=== PATIENT | female | born 1945 | race Caucasian/White ===

== ENCOUNTER → 2020-06-06 11:09 | Outpatient (BNVA) | payer BC, SELFPAY | PROVIDERS: PCP Internal Medicine Endocrinology, Diabetes & Metabolism; Visit Provider Internal Medicine Pulmonary Disease | DX: Z76.89 Persons encountering health services in other specified circumstances (principal) ==

== ENCOUNTER → 2020-09-11 12:38 | Outpatient (BNVA) | payer BC, SELFPAY | PROVIDERS: PCP Internal Medicine Endocrinology, Diabetes & Metabolism; Visit Provider Internal Medicine Pulmonary Disease ==

== ENCOUNTER → 2021-03-07 12:57 | Outpatient (BNVA) | payer BC, SELFPAY | PROVIDERS: PCP Internal Medicine Endocrinology, Diabetes & Metabolism; Visit Provider Internal Medicine Pulmonary Disease ==

== ENCOUNTER → 2021-09-24 12:50 | Outpatient (BNVA) | payer BC, SELFPAY | PROVIDERS: PCP Internal Medicine Endocrinology, Diabetes & Metabolism; Visit Provider Internal Medicine Pulmonary Disease | DX: Z13.89 Encounter for screening for other disorder (principal) ==

== ENCOUNTER → 2022-09-24 13:28 | Outpatient (BNVA) | payer MEDICARE, SELFPAY | PROVIDERS: PCP Internal Medicine Endocrinology, Diabetes & Metabolism; Visit Provider Internal Medicine Pulmonary Disease | DX: J44.9 Chronic obstructive pulmonary disease, unspecified (principal); R06.00 Dyspnea, unspecified; R91.8 Other nonspecific abnormal finding of lung field | CPT/HCPCS: 99212 ==

== ENCOUNTER → 2022-10-16 13:45 | Outpatient (BNVA) | payer MEDICARE, SELFPAY | PROVIDERS: PCP Internal Medicine Endocrinology, Diabetes & Metabolism; Visit Provider Internal Medicine Pulmonary Disease | DX: J44.9 Chronic obstructive pulmonary disease, unspecified (principal); R06.02 Shortness of breath; R91.8 Other nonspecific abnormal finding of lung field | CPT/HCPCS: 99212 ==

== ENCOUNTER → 2022-10-28 13:44 | Outpatient (BNVA) | payer MEDICARE, SELFPAY | PROVIDERS: PCP Internal Medicine Endocrinology, Diabetes & Metabolism; Visit Provider Internal Medicine Pulmonary Disease | DX: J44.9 Chronic obstructive pulmonary disease, unspecified (principal); R06.00 Dyspnea, unspecified; R91.8 Other nonspecific abnormal finding of lung field | CPT/HCPCS: Q3014 ==

== ENCOUNTER 2022-12-31 12:46 | Outpatient (REF) | payer MEDICARE, SELFPAY ==
--- NOTE | ~2022-12-31 | CT_ITS ---
EXAMINATION: CT CHEST WITHOUT CONTRAST CLINICAL INFORMATION: Other nonspecific abnormal finding of lung field COMPARISON: None available. TECHNIQUE: Multidetector volumetric CT imaging of the chest was done. Axial MIP volume rendering provided. Sagittal and coronal reformatted images were obtained. This CT examination was performed using dose optimization techniques as appropriate, variously including the following: *Automated exposure control *Adjustment of mA and/or kV according to patient size (this includes techniques or standardized protocols for targeted exams where dose is matched to indication/reason for exam; i.e. extremities or head) *Use of iterative reconstruction technique DLP: 137 mGy-cm FINDINGS: HEM MARKER: Unremarkable LUNGS: There are innumerable small pulmonary nodules. Largest pulmonary nodule measures 5 mm in the right lower lobe axial image 171 series 7. There are also scattered areas of bronchial wall thickening and bronchiectasis. There is a atelectasis or small infiltrate in the inferior lingula. MEDIASTINUM: Small mediastinal lymph nodes. No enlarged hilar or mediastinal lymph nodes. Normal heart size. No pericardial effusion. CORONARY ARTERY CALCIFICATION: Mild PLEURA: There is no pleural effusion. No pleural mass or thickening. AXILLA: 3.3 x 3.5 cm left breast mass. UPPER ABDOMEN: Left upper quadrant splenules. Low-attenuation 1 cm left adrenal lesion probably representing a benign lipid rich adenoma. Hounsfield units measure -8. Multiple renal cysts. No imaging follow-up recommended. Cholecystectomy. OSSEOUS STRUCTURES: Degenerative changes of the spine. CT/CT chest wo IV con IMPRESSION: 3 x 5 cm left breast mass. Correlation with physical exam, and mammogram recommended. Innumerable small pulmonary nodules, largest a 5 mm right lower lobe. Scattered areas of mild bronchiectasis and bronchial wall thickening. Infectious, inflammatory and neoplastic processes should be considered. Fleischner guidelines were followed.
== END 2022-12-31 12:47 | disposition home or self-care (01) ==
LOC: HO.CT 12:46
PROVIDERS: PCP Internal Medicine Endocrinology, Diabetes & Metabolism; Visit Provider Internal Medicine Pulmonary Disease
DX: R91.8 Other nonspecific abnormal finding of lung field (principal)
CPT/HCPCS: 71250

== ENCOUNTER 2023-04-24 13:47 | Outpatient (AMB) | payer MEDICARE, SELFPAY ==
[2023-04-24 13:51] VITALS: BP 102/58; PULSE 73; O2SAT 95; BMI 36.4
--- NOTE | 2023-04-24 13:51 | MHC.OFFVIS ---
Intake Vital Signs 04/24/23 13:51 Height 5 ft Weight 186 lb 4.65 oz BMI 36.4 BP 102/58 L Blood Pressure Location Rt brachial Position Sitting Pulse 73 Pulse Source Doppler Pulse Oximetry (%) 95 Oxygen Delivery Method Room Air Intake Visit Reasons: asthma Allergies acetaminophen [Percocet] Allergy (Unknown, Verified 04/24/23 13:53) Unknown oxycodone [Percocet] Allergy (Unknown, Verified 04/24/23 13:53) Unknown penicillin V Allergy (Unknown, Verified 04/24/23 13:53) Unknown Sulfa (Sulfonamide Antibiotics) Allergy (Verified 04/24/23 13:53) Hives HPI asthma HPI Details 78-year-old lady, former 15 pack-year smoker, quit 1994, followed for underlying asthma/COPD overlap syndrome and dyspnea on exertion. She has been using Trelegy and albuterol MDI previously with reasonable control of her symptoms. Unfortunately she recently been diagnosed her breast cancer. Patient continues to complain of slowly worsening dyspnea on exertion and lower extremity edema. Today she has had 2D echocardiogram at her bone puller office with results not available at this time. [facility] Medical History (Updated 04/24/23 @ 13:34 by Jasmina Colon PA-C) Asthma-COPD overlap syndrome Paroxysmal nocturnal dyspnea Pulmonary nodules CKD (chronic kidney disease) Hypertension Hyperlipidemia GERD (gastroesophageal reflux disease) Surgical History (Updated 04/24/23 @ 13:30 by Jasmina Colon PA-C) History of cholecystectomy (~1994) 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) History of partial colectomy (~2016) History of colostomy reversal (~2017) Social History Patient Tobacco Use Status: Former Tobacco user Quit Date: 1994 Years Smoked: 15 pack-year smoker, quit 1994 Current occupational status: retired Current occupation: retired - former hairdresser Review of Systems Const Denies daytime sleepiness, Denies excessive sweating, Denies fatigue, Denies fever(s), Denies lethargy, Denies malaise, Denies night sweats, Denies snoring and Denies weight loss Eyes Denies blurry vision and Denies itchy eyes ENT Denies nasal congestion, Denies post nasal drip, Denies sinus pain, Denies sinus pressure and Denies other ( Thrush) Card Denies chest pain, Reports pedal edema, Reports leg edema, Denies dyspnea, Reports dyspnea on exertion, Denies orthopnea and Denies paroxysmal nocturnal dyspnea Resp Denies cough, Denies hemoptysis, Denies excessive phlegm production, Denies dyspnea, Reports dyspnea on exertion, Denies snoring and Denies wheezing GI Denies abdominal pain and Denies heartburn Musc Denies myalgias, Denies arthralgias and Denies joint swelling Skin/Breast Denies rash Neuro Denies memory loss and Denies seizure-like activity Psych Denies abnormal sleep pattern, Denies anxiety and Denies memory loss Endo Denies excessive sweating, Denies fatigue and Denies heat intolerance Arsenio/Lymph Denies easy bruising Aller/Immun Denies itchy eyes, Denies seasonal rhinorrhea and Denies wheezing Physical Exam Vital Signs: Last Vital Signs Pulse 73 04/24/23 13:51 BP 102/58 L 04/24/23 13:51 Pulse Ox 95 04/24/23 13:51 Oxygen Delivery Method Room Air 04/24/23 13:51 BMI result Body Mass Index 36.4 Const General: no acute distress and alert Nutritional Appearance: not obese Orientation/consciousness: Other orientation findings ( oriented) HEENT Head: Yes atraumatic Eyes General: appearance normal, both eyes and all related structures Sclerae: sclerae normal EOM: EOMs intact bilaterally Neck Neck: Yes supple Lymphatic: no lymphadenopathy noted Resp Effort & Inspection: normal respiratory effort and no use of accessory muscles Auscultation: clear to auscultation bilaterally Cardio Rate: regular rate Rhythm: regular rhythm Heart sounds: no gallops, no murmurs and no rubs Skin General skin exam: other ( warm) Extrem General: No clubbing, No cyanosis and Yes edema (2+ bilateral) Assessment & Plan Assessment & Plan (1) Asthma-COPD overlap syndrome: Code(s): J44.9 - Chronic obstructive pulmonary disease, unspecified Plan: Controlled on the current regimen of Trelegy and albuterol MDI. Continue current regimen. (2) Dyspnea on exertion: Code(s): R06.00 - Dyspnea, unspecified Plan: Unclear etiology. May have significant cardiac component. Pulmonary component controlled current regimen. In office supplemental oxygen/6 minute walk test performed. Patient does not require supplemental oxygen to maintain normal oximetry with exertion. Coding Level of Care Code Est Pt Level 4 (34048) Diagnoses Asthma-COPD overlap syndrome J44.9 Dyspnea on exertion R06.00
[2023-04-26 13:13] VITALS: PULSE 92; O2SAT 93
== END 2023-04-24 14:33 | disposition home or self-care (01) ==
PROVIDERS: PCP Internal Medicine Endocrinology, Diabetes & Metabolism; Visit Provider Internal Medicine Pulmonary Disease
DX: J44.9 Chronic obstructive pulmonary disease, unspecified (principal)
CPT/HCPCS: 94618; 99214

== ENCOUNTER → 2023-04-24 13:47 | Outpatient (BNVA) | payer MEDICARE, SELFPAY | PROVIDERS: PCP Internal Medicine Endocrinology, Diabetes & Metabolism; Visit Provider Internal Medicine Pulmonary Disease | DX: J44.9 Chronic obstructive pulmonary disease, unspecified (principal); R06.00 Dyspnea, unspecified | CPT/HCPCS: 94618; 99212 ==

== ENCOUNTER 2023-05-06 14:22 | Outpatient (AMB) | payer MEDICARE, SELFPAY ==
[2023-05-06 14:27] VITALS: BP 120/62; PULSE 70; O2SAT 95; BMI 34.6
--- NOTE | 2023-05-06 14:27 | A.OFFVIS_ITS ---
Intake Vital Signs 05/06/23 14:27 Height 5 ft Weight 177 lb BMI 34.6 BP 120/62 Blood Pressure Location Rt brachial Position Sitting Pulse 70 Pulse Source Doppler Pulse Oximetry (%) 95 Oxygen Delivery Method Room Air Intake Visit Reasons: increased shortness of breath Allergies acetaminophen [Percocet] Allergy (Unknown, Verified 05/06/23 14:33) Unknown oxycodone [Percocet] Allergy (Unknown, Verified 05/06/23 14:33) Unknown penicillin V Allergy (Unknown, Verified 05/06/23 14:33) Unknown Sulfa (Sulfonamide Antibiotics) Allergy (Verified 05/06/23 14:33) Hives HPI increased shortness of breath HPI Details 78-year-old lady, former 15 pack-year sm oker, quit 1994, followed for underlying asthma/COPD overlap syndrome and dyspnea on exertion. She has been using Trelegy and albuterol MDI previously with reasonable control of her symptoms. Unfortunately she recently been diagnosed her breast cancer. Patient continues to complain of slowly worsening dyspnea on exertion and lower extremity edema. She has been observed at [facility] for 18 hours about 1 week prior to this appointment for ?pneumonia and is finishing antibiotic regimen at this time. Patient's bumetanide also has been decreased to once a day by her primary care provider. She continues to complain of dyspnea on exertion and she has at least 1+ lower extremity edema. Patient is scheduled to undergo cardiac stress testing. [facility] Medical History (Updated 04/24/23 @ 13:34 by Jasmina Colon PA-C) Asthma-COPD overlap syndrome Paroxysmal nocturnal dyspnea Pulmonary nodules CKD (chronic kidney disease) Hypertension Hyperlipidemia GERD (gastroesophageal reflux disease) Surgical History (Updated 04/24/23 @ 13:30 by Jasmnia Colon PA-C) History of cholecystectomy (~1994) 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) History of partial colectomy (~2016) History of colostomy reversal (~2017) Social History Patient Tobacco Use Status: Former Tobacco user Quit Date: 1994 Years Smoked: 15 pack-year smoker, quit 1994 Current occupational status: retired Current occupation: retired - former hairdresser Review of Systems Const Denies daytime sleepiness, Denies excessive sweating, Denies fatigue, Denies fever(s), Denies lethargy, Denies malaise, Denies night sweats, Denies snoring and Denies weight loss Eyes Denies blurry vision and Denies itchy eyes ENT Denies nasal congestion, Denies post nasal drip, Denies sinus pain, Denies sinus pressure and Denies other ( Thrush) Card Denies chest pain, Reports pedal edema, Denies dyspnea, Reports dyspnea on exertion, Denies orthopnea and Denies paroxysmal nocturnal dyspnea Resp Denies cough, Denies hemoptysis, Denies excessive phlegm production, Denies dyspnea, Reports dyspnea on exertion, Denies snoring and Denies wheezing GI Denies abdominal pain and Denies heartburn Musc Denies myalgias, Denies arthralgias and Denies joint swelling Skin/Breast Denies rash Neuro Denies memory loss and Denies seizure-like activity Psych Denies abnormal sleep pattern, Denies anxiety and Denies memory loss Endo Denies excessive sweating, Denies fatigue and Denies heat intolerance Arsenio/Lymph Denies easy bruising Aller/Immun Denies itchy eyes, Denies seasonal rhinorrhea and Denies wheezing Physical Exam Vital Signs: Last Vital Signs Pulse 70 05/06/23 14:27 BP 120/62 05/06/23 14:27 Pulse Ox 95 05/06/23 14:27 Oxygen Delivery Method Room Air 05/06/23 14:27 BMI result Body Mass Index 34.6 Const General: no acute distress and alert Nutritional Appearance: not obese Orientation/consciousness: Other orientation findings ( oriented) HEENT Head: Yes atraumatic Eyes General: appearance normal, both eyes and all related structures Sclerae: sclerae normal EOM: EOMs intact bilaterally Neck Neck: Yes supple Lymphatic: no lymphadenopathy noted Resp Effort & Inspection: normal respiratory effort and no use of accessory muscles Auscultation: clear to auscultation bilaterally Cardio Rate: regular rate Rhythm: regular rhythm Heart sounds: no gallops, no murmurs and no rubs Skin General skin exam: other ( warm) Extrem General: No clubbing, No cyanosis and No edema Assessment & Plan Assessment & Plan (1) Asthma-COPD overlap syndrome: Code(s): J44.9 - Chronic obstructive pulmonary disease, unspecified Plan: Controlled on Trelegy and albuterol MDI. Continue current regimen. (2) Dyspnea on exertion: Code(s): R06.00 - Dyspnea, unspecified Plan: Unclear complete etiology. It appears it pulmonary component is controlled. Suspect cardiac component at this time. Patient is to undergo stress testing, if not informative, will consider cardiopulmonary exercise testing. Coding Level of Care Code Est Pt Level 4 (77938) Diagnoses Asthma-COPD overlap syndrome J44.9 Dyspnea on exertion R06.00
== END 2023-05-06 14:57 | disposition home or self-care (01) ==
PROVIDERS: PCP Internal Medicine Endocrinology, Diabetes & Metabolism; Visit Provider Internal Medicine Pulmonary Disease
DX: J44.9 Chronic obstructive pulmonary disease, unspecified (principal); R06.00 Dyspnea, unspecified
CPT/HCPCS: 99214

== ENCOUNTER → 2023-05-06 14:22 | Outpatient (BNVA) | payer MEDICARE, SELFPAY | PROVIDERS: PCP Internal Medicine Endocrinology, Diabetes & Metabolism; Visit Provider Internal Medicine Pulmonary Disease | DX: J44.9 Chronic obstructive pulmonary disease, unspecified (principal); R06.00 Dyspnea, unspecified | CPT/HCPCS: 99212 ==

== ENCOUNTER 2023-07-10 13:20 | Outpatient (AMB) | payer MEDICARE, SELFPAY ==
[2023-07-10 13:40] VITALS: BP 100/58; PULSE 76; O2SAT 94
--- NOTE | 2023-07-10 13:40 | MHC.OFFVIS ---
Intake Vital Signs 07/10/23 13:40 Weight 181 lb 14.102 oz BP 100/58 L Blood Pressure Location Lt brachial Position Sitting Pulse 76 Pulse Source Pulse Oximeter Pulse Oximetry (%) 94 Oxygen Delivery Method Room Air Intake Visit Reasons: 6 min walk Allergies acetaminophen [Percocet] Allergy (Unknown, Verified 07/10/23 13:41) Unknown oxycodone [Percocet] Allergy (Unknown, Verified 07/10/23 13:41) Unknown penicillin V Allergy (Unknown, Verified 07/10/23 13:41) Unknown Sulfa (Sulfonamide Antibiotics) Allergy (Verified 07/10/23 13:41) Hives Medication List - Last Reconciled 07/10/23 by Michaela Dash LPN albuterol sulfate 90 mcg/actuation 2 puffs inhalation QID bumetanide 1.5 mg (3 x 0.5 mg) PO BID 30 days carvedilol 12.5 mg PO BID celecoxib 200 mg PO DAILY chlorhexidine gluconate 0.12% 1 mL PO BID clindamycin HCl 600 mg PO isosorbide mononitrate ER 60 mg PO DAILY loperamide mg PO omeprazole mg PO DAILY ropinirole 0.25 mg PO BID rosuvastatin 20 mg PO BEDTIME Trelegy Ellipta 200-62.5-25 mcg ([id number]) 1 ea inhalation DAILY NS ursodiol 500 mg PO BID zolpidem 5 mg PO BEDTIME PRN zolpidem mg PO BEDTIME PRN PFSH Medical History (Updated 04/24/23 @ 13:34 by Jasmina Colon PA-C) Asthma-COPD overlap syndrome Paroxysmal nocturnal dyspnea Pulmonary nodules CKD (chronic kidney disease) Hypertension Hyperlipidemia GERD (gastroesophageal reflux disease) Surgical History (Updated 04/24/23 @ 13:30 by Jasmina Colon PA-C) History of cholecystectomy (~1994) 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) History of partial colectomy (~2016) History of colostomy reversal (~2017) Social History Patient Tobacco Use Status: Former Tobacco user Quit Date: 1994 Years Smoked: 15 pack-year smoker, quit 1994 Current occupational status: retired Current occupation: retired - former hairdresser Physical Exam Vital Signs: Last Vital Signs Pulse 76 07/10/23 13:40 BP 100/58 L 07/10/23 13:40 Pulse Ox 94 07/10/23 13:40 Oxygen Delivery Method Room Air 07/10/23 13:40 Office Procedures 6 Minute Walk Time:: 13:30 SPO2 % at rest: 94 SPO2 % during excercise: 93 Pulse during excercise: 111 SPO2 % after excercise: 95 Pulse after excercise: 91 Distance in yards walked: 120 Franklin Score: 3 Performance Observations:: Monet walked on level ground with the assistance of a cane to her R hand. She walked on room air for the entire walk and maintained her SPO2 93-95%. No supplemental O2 needed. [id number] - 6 Minute Walk Assessment & Plan Assessment & Plan (1) Asthma-COPD overlap syndrome: Code(s): J44.9 - Chronic obstructive pulmonary disease, unspecified Plan: 6 minute walk test performed, patient does not require supplemental oxygen to maintain normal oximetry with exertion at this time. Orders: Orders AMB 6 minute walk Today J44.9 - Chronic obstructive pulmonary disease, unspecified Coding Level of Care Code Established Pt Est Pt Level 1 (92813) Patient Type Established Diagnoses Asthma-COPD overlap syndrome J44.9 CPT Codes Coding ([id number]) Comment NURSE VISIT ONLY
[2023-07-10 13:43] VITALS: O2SAT 94
== END 2023-07-10 14:09 | disposition home or self-care (01) ==
PROVIDERS: PCP Internal Medicine Endocrinology, Diabetes & Metabolism; Visit Provider Internal Medicine Pulmonary Disease
DX: J44.9 Chronic obstructive pulmonary disease, unspecified (principal)
CPT/HCPCS: 94618

== ENCOUNTER → 2023-07-10 13:20 | Outpatient (BNVA) | payer MEDICARE, SELFPAY | PROVIDERS: PCP Internal Medicine Endocrinology, Diabetes & Metabolism; Visit Provider Internal Medicine Pulmonary Disease | DX: J44.9 Chronic obstructive pulmonary disease, unspecified (principal) | CPT/HCPCS: 94618; 99211 ==